=== PATIENT | male | born 1995 | race Caucasian/White ===

== ENCOUNTER 2017-05-07 15:44 | Emergency (ER) | payer OTHER ==
[2017-05-07 15:51] VITALS: RESP 16; TEMP 98.2
--- NOTE | 2017-05-07 16:02 | EDPHY ---
H & P Stated Complaint: Took 10 OTC zyrtec for hives' Vomited w/in 10 mins of taking; no SI Time Seen by Provider: 05/07/17 16:02 HPI/ROS: HPI: This is a 21-year-old male presents with Chief Complaint: Took 10 OTC zyrtec for hives, Vomited w/in 10 mins of taking; no SI Location: Body Quality: Zyrtec ingestion Duration: Occurred at 2:30 a.m. Signs and Symptoms: No sleepiness, no palpitations, no chest pain, no shortness of breath, no nausea, no vomiting, no abdominal pain, no dizziness Timing: Sudden Severity: The moderate Context: Patient is a local [employer] student and has a history of environmental allergies including pollen as well as avocado. This afternoon while as he was preparing for presentation he started to have hives which he believes is related to his roommates dogs. He took Zyrtec 5 mg tablets times 10 as he thought it would speed up the process of removing his hives. Within 10 min his stomach began to ache and he felt nauseous and he vomited up the pill fragments. He then became worried so he induced vomiting again with more pill fragments that were vomited. He felt immediate relief from a stomach pain and the nausea resolved. He reports his mother used to give him a concoction of medications when he developed hives and itching when he was younger and he believes that he was helping himself. He denies suicidal ideation, homicidal ideation, hallucinations, psychosis, depression. Friend is here and vogues that patient had discussed this with him and friend was there when this occurrence was happening. Poison control was called by nursing upon arrival. Onset of action of Zyrtec is within 1 hr. Patient is approximately 2 hr from ingestion. Modifying Factors: Induced vomiting Comment: ROS: see HPI Constitutional: No fever, no chills, no weight loss Eyes: No blurred vision Respiratory: No shortness of breath, no cough Cardiovascular: No chest pain Gastrointestinal: No nausea, no vomiting, no diarrhea Genitourinary: No dysuria Extremities: No myalgias Neurologic: No weakness, no numbness Skin: No rashes Hematologic: No bruising, no bleeding MEDICAL/SURGICAL/SOCIAL HISTORY: Medical history: Generally healthy. Does not take any regular medications. Surgical history: Denies Social history: Local [employer] student CONSTITUTIONAL: Well-developed well-nourished nontoxic-appearing teenage white male awake and alert, no obvious distress HEENT: Atraumatic and normocephalic, PERRL, EOMI. Tympanic membranes clear. Oropharynx clear, no exudate and moist pink mucosa. Airway patent. No lymphadenopathy. No meningismus. Cardiovascular: Normal S1/S2, regular rate, regular rhythm, without murmur rub or gallop. PULMONARY/CHEST: Symmetrical and nontender. Clear to auscultation bilaterally. Good air movement. No accessory muscle usage. ABDOMEN: Soft, nondistended, nontender, no rebound, no guarding, no peritoneal signs, no masses or organomegaly. No CVAT. EXTREMITIES: 2/2 pulses, strength 5/5, no deformities, no clubbing, no cyanosis or edema. NEUROLOGICAL: no focal neuro deficits. GCS 15. SKIN: Warm and dry, no erythema. no rash. Good capillary refill. Source: Patient Exam Limitations: No limitations - Personal History Current Tetanus Diphtheria and Acellular Pertussis (TDAP): Yes - Social History Smoking Status: Never smoked Constitutional: Initial Vital Signs Temperature (C) 36.8 C 05/07/17 15:45 Heart Rate 73 05/07/17 15:45 Respiratory Rate 16 05/07/17 15:45 Blood Pressure 120/81 H 05/07/17 15:45 O2 Sat (%) 99 05/07/17 15:45 O2 Delivery Mode Room Air Allergies/Adverse Reactions: A lot of environmental allergies Allergy (Uncoded 05/07/17 15:49) Home Medications: Medication Instructions Recorded NK [No Known Home Meds] 05/07/17 Medical Decision Making ED Course/Re-evaluation: Poison Control was contacted. Vital signs stable upon arrival. Patient vomited and majority of pill ingestion. Monitored for 1 hr and discharge per patient request as he has a presentation for his final. Friend with him about contracts for his safety. Differential Diagnosis: Differential includes antihistamine overdose. Departure - Departure Disposition: Home, Routine, Self-Care Clinical Impression: Accidental overdose Qualifiers: Encounter type: initial encounter Qualified Code(s): T50.901A - Poisoning by unspecified drugs, medicaments and biological substances, accidental ( unintentional), initial encounter Condition: Good Instructions: Antihistamine (By mouth) Additional Instructions: Please avoid taking more medication than prescribed. 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 Referrals: [facility],. [Clinic] - As per Instructions
[2017-05-07 16:27] VITALS: BP 129/80; PULSE 70; O2SAT 96
== END 2017-05-07 16:27 | disposition home or self-care (01) ==
DX: T45.0X1A Poisoning by antiallergic and antiemetic drugs, accidental (unintentional), initial encounter (principal)